=== PATIENT | male | born 2000 | race African-American/Black ===

== ENCOUNTER 2024-05-07 10:09 | Inpatient (IN) | payer OTHER ==
[2024-05-07 11:03] LABS: Specific Gravity 1.014 (1.005-1.030); Sqamous Epithelial <5 /HPF (None Seen); Urine Bacteria None Seen /HPF (<20); Urine Bilirubin NEGATIVE (Negative); Urine Blood Negative (Negative); Urine Clarity Clear (Clear); Urine Color Light-Yellow (Yellow); Urine Culture Reflex Order NOT NEEDED; Urine Glucose NEGATIVE (Negative); Urine Ketones NEGATIVE (Negative); Urine Micro Reflex YN NO BILL MICROSCOPIC; Urine Mucus Slight /HPF (None Seen); Urine Nitrite NEGATIVE (Negative); Urine Protein 1+ (Negative); Urine RBC <5 /HPF (None Seen); Urine Urobilinogen Normal (Normal); Urine WBC <5 /HPF (<5)
[2024-05-07 11:18] LABS: Absolute Eosinophils 0.1 K/uL (0-0.5); Absolute Lymphocytes (CBC) 0.9 K/uL (0.7-4.9); Absolute Monocytes 0.9 K/uL (0.1-1.3); Absolute Neutrophil 12.2 K/uL (1.8-8.0); Basophils % 0.3 % (0-1.3); Eosinophils % 0.8 % (0-4.4); Hematocrit 51.4 % (39.6-49.0); Hemoglobin 16.2 g/dL (13.6-17.9); Lymphocytes % 6.3 % (15.3-44.8); MCH 25.4 pg (27.0-35.0); MCHC 31.6 g/dL (32.0-36.0); MCV 80.4 fL (80-100); MPV 8.3 fL (7.6-11.3); Monocytes % 6.2 % (3.3-12.3); Neutrophils % 86.4 % (41.7-73.7); Platelets 308 thou/uL (152-406); RBC Red Blood Cell Count 6.39 M/uL (4.33-5.43); Red Cell Distribution Width 14.9 % (12.1-15.2)
[2024-05-07 11:19] LABS: Albumin 3.7 g/dL (3.4-5.0); Albumin/Globulin Ratio 0.8 (1.1-1.8); Anion Gap 8.1 mEq/L (5.0-15.0); Bilirubin Total 0.4 mg/dL (0.2-1.0); Globulin 4.5 g/dL (2.3-3.5); Potassium 3.1 mEq/L (3.5-5.1); Protein, Total 8.2 g/dL (6.4-8.2)
[2024-05-07] MEDS ORDERED: D10W 250 ML IV ONE (11:32)
[2024-05-07] MEDS ORDERED: POTASSIUM CL SA 10 MEQ TAB PO ONE (11:39)
[2024-05-07] MEDS ORDERED: KCL 20 MEQ/100 mL IVPB 100 ML IV ONE (11:39)
[2024-05-07 12:17] LABS: Blood Morphology Comment NOT SEEN (NOT SEEN); Platelet Estimate ADEQ; White Blood Cell Scan OK (OK)
[2024-05-07] MEDS ORDERED: NA CHLORIDE 0.9% 250 ML ONE ×2 (12:37→19:32)
--- NOTE | 2024-05-07 12:51 | EDPHYS ---
Physician Documentation [facility] Name: Lopez Leach Age: 23 yrs Sex: Male : 2000 Arrival Date: 05/07/2024 Time: 10:09 Bed 3 Private MD: ED Physician Antonino Lubin HPI: 05/07 10:16 This 23 yrs old Black Male presents to ER via Unassigned with complaints of Low Blood ec2 Sugar. 10:16 Patient arrives today for evaluation of hypoglycemia. Patient is a type I diabetic, had ec2 received Novolin this morning, subsequently found unresponsive with a blood sugar in the 30s. Glucagon given, IV started, dextrose given with improvement. Patient was initially combative however with improvement in blood sugars have since resolved. No seizure activity noted identified.. Historical: - Allergies: 10:21 No Known Allergies; ko1 - PMHx: 10:21 Diabetes mellitus; ko1 - Immunization history:: Adult Immunizations unknown. - Infectious Disease History:: Denies. - Social history:: Smoking status: Patient denies any tobacco usage or history of. ROS: 10:16 Constitutional: as per hpi ec2 Exam: 10:16 Constitutional: GEN: NAD Head: atraumatic Eyes: EOMI Ears: External ears are ec2 normal. CV: regular rate LUNGS: no respiratory distress ABD: non-distended SKIN: no evidence of rashes MSK: no evidence of trauma NEURO: moves all extremities equally Vital Signs: 10:17 BP 140 / 89; Pulse 98; Resp 18; Temp 97; Pulse Ox 98% on R/A; ko1 11:30 BP 126 / 77; Pulse 85; Resp 14; Pulse Ox 99% ; ko1 12:44 BP 113 / 68; Pulse 91; Resp 20; Pulse Ox 99% ; as6 14:00 BP 100 / 70; Pulse 69; Resp 21; Pulse Ox 100% on R/A; as6 15:37 BP 128 / 79; Pulse 76; Resp 20 S; Pulse Ox 100% on R/A; as6 17:24 Weight 89.36 kg; Height 6 ft. 0 in. ; hb 17:32 BP 121 / 81; Pulse 65; Resp 19; Pulse Ox 100% ; as6 18:11 BP 129 / 80; Pulse 65; Resp 16; Pulse Ox 100% ; as6 17:24 Body Mass Index 26.72 (89.36 kg, 182.88 cm) hb MDM: 10:15 Patient medically screened. ec2 10:16 Data reviewed: vital signs. ED course: Patient arrives today for evaluation of ec2 hyperglycemia. Examination remarkable for well-appearing nontoxic individual otherwise in no acute distress with a reassuring examination. History gathered from EMS as well as patient. Patient is awake and alert and answering questions appropriately. Will obtain lab work, repeat blood sugar. Differential diagnosis includes supratherapeutic administration of hypoglycemic agents, electrolyte disturbances, renal dysfunction.. 10:59 ED course: On recheck blood sugar within appropriate ranges.. ec2 10:59 ED course: MDM: Differential diagnosis as documented above in ED course; All lab tests ec2 ordered and reviewed as documented above; History gathered from independent historian: Yes, EMS; . 11:28 ED course: CBC shows slight leukocytosis, bmp shows hypoglycemia, pt remains awake, ec2 alert and conversation, will recheck fingerstick and resend BMP . 11:34 ED course: Repeat blood sugar on fingerstick noted to be at the mid 20s. Will give the ec2 patient dextrose containing fluids. Patient remains awake and alert and responsive appropriately. Given the patient has now received 2 dextrose containing fluid w/ episodes of recurrent hypoglycemia, I will admit the patient for hypoglycemia requiring dextrose. . 11:38 ED course: MDM: Differential diagnosis as documented above in ED course; All lab tests ec2 ordered and reviewed as documented above; Independent interpretation of tests: EKG as above; imaging as above; External records reviewed: yes; History gathered from independent historian: Yes, EMS; Discuss inpatient hospitalization: Yes; I discussed the case with: Hospitalist . 11:46 ED course: EKG independently reviewed and interpreted by me, shows normal sinus rhythm, ec2 rate of 86, no acute ST segment elevations, intervals are nonconcerning.. 11:56 ED course: Chest x-ray independently reviewed and interpreted by me, shows no acute ec2 intrathoracic process.. 05/07 10:14 Order name: CBC with Diff; Complete Time: 12:50 ec2 05/07 10:14 Order name: CMP; Complete Time: 11:27 ec2 05/07 10:14 Order name: UAM; Complete Time: 11:04 ec2 05/07 10:26 Order name: Glucose, Ancillary Testing; Complete Time: 10:59 EDMS 05/07 11:34 Order name: Troponin High Sensitivity; Complete Time: 16:18 ec2 05/07 11:34 Order name: LFT's; Complete Time: 16:18 ec2 05/07 11:44 Order name: Glucose, Ancillary Testing; Complete Time: 11:53 EDMS 05/07 12:18 Order name: CBC Smear Scan; Complete Time: 12:50 EDMS 05/07 12:55 Order name: Glucose, Ancillary Testing; Complete Time: 13:08 EDMS 05/07 13:09 Order name: Basic Metabolic Panel; Complete Time: 16:18 EDMS 05/07 13:09 Order name: Lactate w/ 2H reflex if indic.; Complete Time: 16:18 EDMS 05/07 13:09 Order name: Magnesium; Complete Time: 16:18 EDMS 05/07 13:14 Order name: C-Peptide EDMS 05/07 13:14 Order name: Insulin EDMS 05/07 15:56 Order name: Urinalysis w/ reflexes EDMS 05/07 17:19 Order name: Ghost Lactate-NO COLLECT Timer EDMS 05/07 17:34 Order name: Lactate w/ 2H reflex if indic. EDMS 05/07 17:36 Order name: Glucose, Ancillary Testing EDMS 05/07 19:34 Order name: Ghost Lactate-NO COLLECT Timer EDMS 05/07 20:03 Order name: Lactate Sepsis 2 HR Follow-up EDMS 05/07 21:49 Order name: Glucose, Ancillary Testing EDMS 05/07 11:32 Order name: CXR XRAY; Complete Time: 13:08 ec2 05/07 10:14 Order name: Accucheck; Complete Time: 10:22 ec2 05/07 10:59 Order name: PO challenge; Complete Time: 11:14 ec2 05/07 11:29 Order name: Glucose Level; Complete Time: 11:33 ec2 05/07 11:34 Order name: EKG - Nurse/Tech; Complete Time: 11:42 ec2 Administered Medications: 11:25 Drug: D10 in Water IVP 250 ml IVP once Route: IVP; Site: right antecubital; as6 18:36 Follow up: Response: No adverse reaction; Blood sugar is elevated as6 11:42 Drug: Potassium Chloride PO 40 mEq PO once Route: PO; ko1 17:33 Follow up: Response: No adverse reaction as6 12:43 Drug: Potassium Chloride IV 20 mEq IV at calculated rate once; administer over 1-2 as6 hours Route: IV; Rate: calculated rate; Site: right antecubital; 17:32 Follow up: Response: No adverse reaction; IV Status: Completed infusion; IV Intake: as6 100ml 15:37 Drug: NS 0.9% IV 1000 ml IV at 1 bolus Per protocol; 1000 mL bolus Route: IV; Rate: 1 as6 bolus; Site: right antecubital; 17:32 Follow up: Response: No adverse reaction; IV Status: Completed infusion; IV Intake: as6 1000ml Point of Care Testing: Blood Glucose: 11:34 Blood Glucose: 27 mg/dL; as6 12:44 Blood Glucose: 138 mg/dL; as6 Ranges: Critical Glucose Levels:Adult <50 mg/dl or >400 mg/dl <40 mg/dl or >180 mg/dl Disposition Summary: 05/07/24 12:50 Hospitalization Ordered Notes: Hospitalization Status: Inpatient Admission ec2 Provider: Funmilayo Wright ec2 Condition: Stable ec2 Problem: an ongoing problem ec2 Symptoms: have improved ec2 Bed/Room Type: Standard ec2 [facility] Room Assignment: [facility](05/07/24 20:05) Diagnosis - Type 1 diabetes mellitus with hypoglycemia ec2 Discharge Instructions: - Discharge Summary Sheet ec2 - Hypoglycemia, [id number] ec2 Forms: - Medication Reconciliation Form ec2 - SBAR form ec2 - Leadership Thank You Letter ec2 Critical care time excluding procedures: 12:50 Critical care time: Bedside Care: 30 minutes, Consultation: 5 minutes. Total time: 35 ec2 minutes Signatures: Dispatcher [employer] Teresa Black RN VALE hb Jacek Robles RN RN as6 Sarah Devi RN RN ko1 Antonino Lubin MD MD ec2 Corrections: (The following items were deleted from the chart) 13:15 11:29 BASIC METABOLIC PANEL+C.LAB.BRZ ordered. EDMS EDMS 20:05 12:50 Intensive Care Unit ec2 hb 20:05 12:50 ec2 hb
--- NOTE | 2024-05-07 12:51 | ER ---
Nurse's Notes [facility] Name: Lopez Leach Age: 23 yrs Sex: Male : 2000 Arrival Date: 05/07/2024 Time: 10:09 Bed 3 Private MD: Diagnosis: Type 1 diabetes mellitus with hypoglycemia Presentation: 05/07 10:17 Chief complaint: EMS states: patient received his morning insulin at the [facility] and ko1 then was found unresponsive in his cell. Blood sugar was in the 30's, was given ORAL glucose and EMS arrived and started D10. Coronavirus screen: At this time, the client does not indicate any symptoms associated with coronavirus-19. Ebola Screen: No symptoms or risks identified at this time. Initial Sepsis Screen: Does the patient meet any 2 criteria? No. Patient's initial sepsis screen is negative. Does the patient have a suspected source of infection? No. Patient's initial sepsis screen is negative. Risk Assessment: Do you want to hurt yourself or someone else? Patient reports no desire to harm self or others. Onset of symptoms was May 07, 2024. Care prior to arrival: Medication(s) given: D10 IV initiated. 20 GA, in the right antecubital area, Glucose check: 334 Oxygen administered. via a non-rebreather mask. Activity prior to arrival: combative, loss of consciousness. 10:17 Method Of Arrival: EMS: [facility] ko1 10:17 Acuity: PATRICIA 3 ko1 Triage Assessment: 10:21 General: Appears in no apparent distress. Behavior is calm, cooperative, appropriate ko1 for age. Pain: Denies pain. Historical: - Allergies: 10:21 No Known Allergies; ko1 - PMHx: 10:21 Diabetes mellitus; ko1 - Immunization history:: Adult Immunizations unknown. - Infectious Disease History:: Denies. - Social history:: Smoking status: Patient denies any tobacco usage or history of. Screenin:30 [facility] ED Fall Risk Assessment (Adult) History of falling in the last 3 months, ko1 including since admission No falls in past 3 months (0 pts) Confusion or Disorientation No (0 pts) Intoxicated or Sedated No (0 pts) Impaired Gait No (0 pts) Mobility Assist Device Used No (0 pt) Altered Elimination No (0 pt) Score/Fall Risk Level 0 - 2 = Low Risk Oriented to surroundings, Maintained a safe environment, Educated pt \T\ family on fall prevention, incl call for assistance when getting out of bed, Assessed \T\ reinforced patient's understanding of fall precautions, Provided non-skid footwear, Hourly rounding (assess needs \T\ fall precautionary measures) done, Used ambulatory aids as needed (educated on \T\ assisted with), Used gait belt as appropriate. Abuse screen: Denies threats or abuse. Denies injuries from another. Nutritional screening: No deficits noted. Tuberculosis screening: No symptoms or risk factors identified. Assessment: 10:30 General: Appears in no apparent distress. Behavior is calm, cooperative, appropriate ko1 for age. Pain: Denies pain. Neuro: No deficits noted. Cardiovascular: No deficits noted. Respiratory: No deficits noted. GI: No deficits noted. : No deficits noted. EENT: No deficits noted. Derm: No deficits noted. Musculoskeletal: No deficits noted. 12:44 Reassessment: Patient appears in no apparent distress at this time. as6 15:38 Reassessment: Patient appears in no apparent distress at this time. no complaints or as6 concerns at this time. 18:11 Reassessment: Patient appears in no apparent distress at this time. Patient and/or as6 family updated on plan of care and expected duration. Pain level reassessed. Patient is alert, oriented x 3, equal unlabored respirations, skin warm/dry/pink. Vital Signs: 10:17 BP 140 / 89; Pulse 98; Resp 18; Temp 97; Pulse Ox 98% on R/A; ko1 11:30 BP 126 / 77; Pulse 85; Resp 14; Pulse Ox 99% ; ko1 12:44 BP 113 / 68; Pulse 91; Resp 20; Pulse Ox 99% ; as6 14:00 BP 100 / 70; Pulse 69; Resp 21; Pulse Ox 100% on R/A; as6 15:37 BP 128 / 79; Pulse 76; Resp 20 S; Pulse Ox 100% on R/A; as6 17:24 Weight 89.36 kg; Height 6 ft. 0 in. ; hb 17:32 BP 121 / 81; Pulse 65; Resp 19; Pulse Ox 100% ; as6 18:11 BP 129 / 80; Pulse 65; Resp 16; Pulse Ox 100% ; as6 17:24 Body Mass Index 26.72 (89.36 kg, 182.88 cm) ED Course: 10:13 Patient arrived in ED. as6 10:14 Antonino Lubin MD is Attending Physician. ec2 10:17 Sarah Devi, RN is Primary Nurse. ko1 10:21 Triage completed. ko1 10:21 Arm band placed on right wrist. Patient placed in an exam room, on a stretcher, on ko1 pulse oximetry, Patient notified of wait time. 10:30 Patient has correct armband on for positive identification. Bed in low position. Call ko1 light in reach. Side rails up X2. Security at bedside. Provided Education on: labs, call light. Pulse ox on. NIBP on. Door closed. Noise minimized. Warm blanket given. Pillow given. PO fluids given. Assisted with urinal. 10:30 No provider procedures requiring assistance completed. Maintain EMS IV. Dressing ko1 intact. Good blood return noted. Site clean \T\ dry. Gauge \T\ site: 20g right AC. 10:54 UAM Sent. as6 10:54 CMP Sent. as6 10:54 CBC with Diff Sent. as6 11:14 PO fluids given. as6 12:10 CXR XRAY In Process Unspecified. EDMS 12:45 Diet tray given. as6 12:50 Funmilayo Wright MD is Hospitalizing Provider. ec2 18:15 Primary Nurse role handed off by Sarah Devi, RN as6 18:38 Patient admitted, IV remains in place. as6 Administered Medications: 11:25 Drug: D10 in Water IVP 250 ml IVP once Route: IVP; Site: right antecubital; as6 18:36 Follow up: Response: No adverse reaction; Blood sugar is elevated as6 11:42 Drug: Potassium Chloride PO 40 mEq PO once Route: PO; ko1 17:33 Follow up: Response: No adverse reaction as6 12:43 Drug: Potassium Chloride IV 20 mEq IV at calculated rate once; administer over 1-2 as6 hours Route: IV; Rate: calculated rate; Site: right antecubital; 17:32 Follow up: Response: No adverse reaction; IV Status: Completed infusion; IV Intake: as6 100ml 15:37 Drug: NS 0.9% IV 1000 ml IV at 1 bolus Per protocol; 1000 mL bolus Route: IV; Rate: 1 as6 bolus; Site: right antecubital; 17:32 Follow up: Response: No adverse reaction; IV Status: Completed infusion; IV Intake: as6 1000ml Medication: 10:30 VIS not applicable for this client. ko1 Point of Care Testing: Blood Glucose: 11:34 Blood Glucose: 27 mg/dL; as6 12:44 Blood Glucose: 138 mg/dL; as6 Ranges: Intake: 17:32 IV: 1000ml; Total: 1000ml. as6 17:32 IV: 100ml; Total: 1100ml. as6 Outcome: 12:50 Decision to Hospitalize by Provider. ec2 18:38 Condition: stable as6 18:38 Instructed on the need for admit, 21:53 Admitted to Med/surg accompanied by tech, via wheelchair, with chart, tm6 21:54 Patient left the ED. tm6 Signatures: Dispatcher [employer] Teresa Black RN RN Jacek Robles RN RN as6 Sarah Devi RN RN ko1 Antonino Lubin MD MD ec2 Deborah Paz RN RN tm6
--- NOTE | 2024-05-07 13:02 | RAD REPORT ---
EXAM DESCRIPTION: Nai Single View05/07/2024 12:08 pm CLINICAL HISTORY: cough COMPARISON: none FINDINGS: The lungs appear clear of acute infiltrate. The heart is normal size IMPRESSION: No acute abnormalities displayed
--- NOTE | 2024-05-07 13:14 | P.HP ---
Certification for Inpatient Patient admitted to: Inpatient Practitioner: I am a practitioner with admitting privileges, knowledge of patient current condition, hospital course, and medical plan of care. Services: Services provided to patient in accordance with Admission requirements found in Title 42 Section 412.3 of the Code of Federal Regulations Patient History Date of Service: 05/08/24 Reason for admission: Hypoglycemia History of Present Illness: 23-year-old -[place] male with a past medical history of insulin- dependent diabetes, presented to the emergency room for hypoglycemia. Patient was treated with IV dextrose, had recurrent hypoglycemia. No reported fever, no reported nausea vomiting abdominal pain, diarrhea. Plan to admit for hypoglycemia, sepsis without shock, and diabetes mellitus type 1.additional labs patient had elevated lactic 3.2, repeat 2.2 elevated blood glucose, treated with sliding scale insulin, resume home insulin, patient is awake, tolerating diet, plan to admit for hypoglycemia, for diabetes type 1 with hypoglycemia, sepsis unknown source without hypotension. Allergies peanut Allergy (Verified 05/08/24 09:10) Shortness of breath Home Medications: Insulin NPH Human Isophane [Novolin N] 15 unit SQ BEDTIME 05/08/24 Insulin NPH Human Isophane [Novolin N] 30 unit SQ DAILY 05/08/24 Insulin Regular, Human [Novolin R] 5 unit SQ BIDWM 05/08/24 - Past Medical/Surgical History -: Insulin-dependent diabetes mellitus Past Surgical History: Unable to obtain Psychosocial/ Personal History: Presents as a prisoner for hypoglycemia - Social History Smoking Status: Unknown if ever smoked Alcohol use: No CD- Drugs: Yes Review of Systems Per HPI Physical Examination - Physical Exam General: Alert, In no apparent distress HEENT: Atraumatic, Normocephalic Neck: Supple, JVD not distended Cardiovascular: No edema, Normal pulses Capillary refill: <2 Seconds Gastrointestinal: Normal bowel sounds, Soft and benign Musculoskeletal: No clubbing, No swelling Integumentary: No breakdown, No significant lesion Neurological: Normal speech, Normal strength at 5/5 x4 extr - Studies Laboratory Data (last 24 hrs) 05/07/24 05/07/24 10:50 10:50 WBC 14.10 H Hgb 16.2 Hct 51.4 H Plt Count 308 Sodium 141 Potassium 3.1 L BUN 9 Creatinine 1.29 Glucose 25 L* Total Bilirubin 0.4 AST 17 ALT 24 Alkaline Phosphatase 89 Assessment and Plan - Plan Assessment plan Sepsis without shock, unknown source Leukocytosis , Elevated lactic, Blood cultures negative, UA negative, Treated with IV fluids, IV antibiotics, Hypoglycemia As needed glucose Accu-Chek ACHS, Diabetes type 1 unknown control Resume home NovoLog, Disposition return to sending facility Discharge Plan: Other (Present) - Advance Directives Does patient have a Living Will: No Does patient have a Durable POA for Healthcare: No - Code Status/Comfort Care Code Status: Full Code Critical Care: No Time Spent Managing Pts Care (In Minutes): 55
[2024-05-07 15:08] LABS: Anion Gap 8.3 mEq/L (5.0-15.0); Magnesium 2.4 mg/dL (1.6-2.4); Potassium 4.3 mEq/L (3.5-5.1)
[2024-05-07 15:29] LABS: ALT/SGPT 23 U/L (16-61); AST/SGOT 21 U/L (15-37); Albumin 3.6 g/dL (3.4-5.0); Albumin/Globulin Ratio 0.8 (1.1-1.8); Alkaline Phosphatase 92 U/L (45-117); Bilirubin Total 0.5 mg/dL (0.2-1.0); Globulin 4.6 g/dL (2.3-3.5); Protein, Total 8.2 g/dL (6.4-8.2); Troponin High Sensitivity 19.1 pg/mL (<58.9)
[2024-05-07 15:30] LABS: Bilirubin Direct < 0.2 mg/dL (0-0.2); Bilirubin Indirect, Calculated 0.3 mg/dL (0.2-0.8)
[2024-05-07] MEDS ORDERED: NA CHLORIDE 0.9% 1,000 ML ONE ×2 (15:30→19:32)
[2024-05-07] MEDS: NA CHLORIDE 0.9% 1,000 ML IV SCH (16:00)
[2024-05-07] MEDS: VANCOMYCIN 1 GM in NA CHLORIDE 0.9% 250 ML IVPB SCH (16:00)
[2024-05-07] MEDS ORDERED: GLUCAGON 1 MG/VIAL IV PRN (16:04)
[2024-05-07] MEDS ORDERED: ACETAMINOPHEN 500 MG TAB PO PRN (16:07)
[2024-05-07] MEDS ORDERED: ALPRAZOLAM 0.25 MG TABLET PO PRN (16:07)
[2024-05-07] MEDS ORDERED: ONDANSETRON 4 MG/2 ML VIAL IV PRN (16:07)
[2024-05-07] MEDS: VANCOMYCIN 750 MG in NA CHLORIDE 0.9% 150 ML IVPB ONE (18:00)
[2024-05-07] MEDS ORDERED: VANCOMYCIN 1.5 GM in NA CHLORIDE 0.9% 500 ML IVPB SCH (18:00)
[2024-05-07] MEDS: VANCOMYCIN 1.5 GM in NA CHLORIDE 0.9% 500 ML IVPB SCH (18:00)
[2024-05-07 18:38] VITALS: BMI 26.7
[2024-05-07] MEDS ORDERED: VANCOMYCIN 500 MG/VIAL ONE (19:31)
[2024-05-07] MEDS ORDERED: VANCOMYCIN 1 GM/VIAL ONE ×2 (19:31→19:36)
[2024-05-07] MEDS ORDERED: NA CHLORIDE 0.9% 500 ML ONE (19:32)
[2024-05-07] MEDS: INSULIN REGULAR (HUMAN) 100 UNIT/ML SQ SCH (19:39)
[2024-05-07 21:36] VITALS: O2SAT 96
[2024-05-07] MEDS ORDERED: INSULIN REGULAR (HUMAN) 100 UNIT/ML ONE (21:43)
--- NOTE | 2024-05-08 07:13 | P.DS ---
Admission Date: 05/07/24 Discharge Date: 05/08/24 Disposition: DISCHARGE TO RETIREMENT/RETIREMENT Discharge Condition: GOOD Brief History of Present Illness: 23-year-old -[place] male with a past medical history of insulin- dependent diabetes, presented to the emergency room for hypoglycemia. Patient was treated with IV dextrose, had recurrent hypoglycemia. No reported fever, no reported nausea vomiting abdominal pain, diarrhea. Plan to admit for hypogl ycemia, sepsis without shock, and diabetes mellitus type 1. - Physical Exam General: Alert, In no apparent distress HEENT: Atraumatic, Normocephalic Neck: Supple, JVD not distended Cardiovascular: No edema, Normal pulses Capillary refill: <2 Seconds Gastrointestinal: Normal bowel sounds, Soft and benign Musculoskeletal: No clubbing, No swelling Integumentary: No breakdown, No significant lesion Neurological: Normal speech, Normal strength at 5/5 x4 extr Hospital Course: 23-year-old -[place] male with a past medical history of insulin- dependent diabetes, presented to the emergency room for hypoglycemia. Patient was treated with IV dextrose, had recurrent hypoglycemia. Noted to have leukocytosis, elevated lactic, was treated for sepsis, WBCs improved with IV fluids, IV antibiotics, UA negative, patient is awake, tolerating diet, can discharge to sending facility, present. Follow-up with PCP, after discharge Assessment Hypoglycemia likely secondary to sepsis-without shock, treated with IV antibiotics plan to discharge home on p.o. antibiotics, unknown source of infection Hypoglycemia-discharged with glucose, ACHS blood sugars, Diabetes type 1 resume home meds after discharge, diabetic diet Continue home medicines as previously prescribed GOAL: Clear understanding of disease process INSTRUCTIONS: Physician Discharge Instructions: -Follow-up with PCP in 1 to 2 weeks -Please call Dr. Wright at [phone] if any questions regarding hospital stay -Please call nursing station at [phone] if any nursing or medication questions -Return to the emergency room if symptoms worsen Diet: ADA, low sodium Activity: Fall precautions Vital Signs/Physical Exam: Temp Pulse Resp BP Pulse Ox 96.0 F L 78 16 128/78 96 05/07/24 20:00 05/07/24 20:00 05/07/24 20:00 05/07/24 20:00 05/07/24 20:00 Laboratory Data at Discharge: WBC 14.10 thou/uL (4.3-10.9) H 05/07/24 10:50 Hgb 16.2 g/dL (13.6-17.9) 05/07/24 10:50 Hct 51.4 % (39.6-49.0) H 05/07/24 10:50 Plt Count 308 thou/uL (152-406) 05/07/24 10:50 Sodium 135 mEq/L (136-145) L D 05/07/24 14:43 Potassium 4.3 mEq/L (3.5-5.1) D 05/07/24 14:43 BUN 10 mg/dL (7-18) 05/07/24 14:43 Creatinine 1.26 mg/dL (0.70-1.30) 05/07/24 14:43 Glucose 173 mg/dL (74-106) H 05/07/24 14:43 Magnesium 2.4 mg/dL (1.6-2.4) 05/07/24 14:43 Total Bilirubin 0.5 mg/dL (0.2-1.0) 05/07/24 14:43 AST 21 U/L (15-37) 05/07/24 14:43 ALT 23 U/L (16-61) 05/07/24 14:43 Alkaline Phosphatase 92 U/L (45-117) 05/07/24 14:43 Home Medications: Insulin NPH Human Isophane [Novolin N] 15 unit SQ BEDTIME 05/08/24 Insulin NPH Human Isophane [Novolin N] 30 unit SQ DAILY 05/08/24 Insulin Regular, Human [Novolin R] 5 unit SQ BIDWM 05/08/24 Diet: ADA Activity: Fall precautions Followup: NONE,NONE [Primary Care Provider] - Time spent managing pt's care (in minutes): 55
[2024-05-08] MEDS: CEFEPIME 1 GM in NA CHLORIDE 0.9% 100 ML IV SCH (07:24)
[2024-05-08 08:51] LABS: Absolute Basophils 0.1 K/uL (0-0.5); Absolute Eosinophils 0.3 K/uL (0-0.5); Absolute Lymphocytes (CBC) 1.4 K/uL (0.7-4.9); Absolute Neutrophil 7.6 K/uL (1.8-8.0); Basophils % 0.5 % (0-1.3); Eosinophils % 2.9 % (0-4.4); Hematocrit 46.6 % (39.6-49.0); Hemoglobin 15.2 g/dL (13.6-17.9); Lymphocytes % 13.9 % (15.3-44.8); MCHC 32.5 g/dL (32.0-36.0); MCV 79.8 fL (80-100); MPV 8.4 fL (7.6-11.3); Monocytes % 9.4 % (3.3-12.3); Neutrophils % 73.3 % (41.7-73.7); Platelets 295 thou/uL (152-406); RBC Red Blood Cell Count 5.83 M/uL (4.33-5.43); Red Cell Distribution Width 14.9 % (12.1-15.2)
[2024-05-08 08:54] LABS: Anion Gap 7.4 mEq/L (5.0-15.0); Magnesium 1.9 mg/dL (1.6-2.4); Potassium 4.4 mEq/L (3.5-5.1)
[2024-05-08] MEDS ORDERED: ENOXAPARIN 40 MG/0.4 ML SQ SCH (09:00)
[2024-05-08] MEDS: INSULIN 70/30 100 UNITS/ML SQ ONE (10:22)
[2024-05-08] MEDS: INSULIN GLARGINE 100 UNIT/ML SQ STA (12:34)
[2024-05-08 13:03] VITALS: BP 137/66; TEMP 97.6
--- NOTE | 2024-05-09 14:57 | EKG ---
Test Date: 2024-05-07 Test Time: 11:41:11 Sprinkler Driver: MEASUREMENT RESULTS: Intervals: Rate: 86 CT: 182 QRSD: 86 QT: 378 QTc: 452 [place]: P: 57 CT: 182 QRS: 61 T: 38 INTERPRETIVE STATEMENTS: Normal sinus rhythm ST elevation, consider early repolarization, pericarditis, or injury Abnormal ECG No previous ECG available for comparison Electronically Signed On 05-09-24 14:52:15 CDT by Sergio Rick
[2024-05-11 04:47] LABS: C-Peptide <0.10 ng/mL (0.80-3.85); Insulin 14.2 uIU/mL (<=18.4)
== END 2024-05-08 13:08 | DRG 871 ==
LOC: ER 10:09 → ERHOLD 15:52 → 4TH 20:42
PROVIDERS: ADMIT Hospitalist; ATTEND Hospitalist
DX: A41.9 Sepsis, unspecified organism (principal); G93.41 Metabolic encephalopathy; E87.20 Acidosis, unspecified; R65.20 Severe sepsis without septic shock; E10.649 Type 1 diabetes mellitus with hypoglycemia without coma; Z79.4 Long term (current) use of insulin; Z91.010 Allergy to peanuts
CPT/HCPCS: 36415; 71045; 80048; 80053; 80076; 81001; 82947; 83036; 83525; 83605; 83735; 84484; 84681; 85025; 87040; 93005; 96365; 96366; 99285; J0692; J1815; J3480; J7030; J7040; J7050

== ENCOUNTER 2024-05-24 20:07 | Observation (INO) | payer OTHER ==
[2024-05-24 20:26] LABS: Absolute Basophils 0.1 K/uL (0-0.5); Absolute Eosinophils 0.3 K/uL (0-0.5); Absolute Lymphocytes (CBC) 1.3 K/uL (0.7-4.9); Basophils % 0.5 % (0-1.3); Eosinophils % 2.7 % (0-4.4); Hematocrit 47.9 % (39.6-49.0); Hemoglobin 15.5 g/dL (13.6-17.9); Lymphocytes % 10.9 % (15.3-44.8); MCH 25.7 pg (27.0-35.0); MCHC 32.3 g/dL (32.0-36.0); MCV 79.5 fL (80-100); MPV 7.8 fL (7.6-11.3); Monocytes % 8.4 % (3.3-12.3); Neutrophils % 77.5 % (41.7-73.7); Nucleated Red Blood Cells % 0.1 % (0-0); Platelets 296 thou/uL (152-406); RBC Red Blood Cell Count 6.02 M/uL (4.33-5.43); Red Cell Distribution Width 15.2 % (12.1-15.2)
[2024-05-24] MEDS ORDERED: ONDANSETRON 4 MG/2 ML VIAL ONE (20:28)
[2024-05-24] MEDS ORDERED: D5 0.9 NS 0 ML IV ONE (20:28)
[2024-05-24] MEDS ORDERED: KETOROLAC 30 MG/ML INJ ONE (20:30)
--- NOTE | 2024-05-24 20:48 | RAD REPORT ---
EXAM DESCRIPTION: Nai Single View05/24/2024 8:35 pm CLINICAL HISTORY: Chest pain COMPARISON: April 2024 FINDINGS: The lungs appear clear of acute infiltrate. The heart is normal size IMPRESSION: No acute abnormalities displayed
--- NOTE | 2024-05-24 20:49 | RAD REPORT ---
EXAM DESCRIPTION: RAD - Wrist Left 3 View - 05/24/2024 8:35 pm CLINICAL HISTORY: Left wrist pain status post injury FINDINGS: No fracture or dislocation is seen. If the patient continues to have symptoms to suggest an occult fracture then a followup plain film se leidy in 7 days would be recommended
[2024-05-24 21:32] LABS: ALT/SGPT 24 U/L (16-61); AST/SGOT 20 U/L (15-37); Albumin 3.8 g/dL (3.4-5.0); Alkaline Phosphatase 79 U/L (45-117); Anion Gap 11.2 mEq/L (5.0-15.0); BUN Blood Urea Nitrogen 18 mg/dL (7-18); Bicarbonate 25 mEq/L (21-32); Bilirubin Total 0.3 mg/dL (0.2-1.0); Glomerular Filtration Rate 78 ml/min (=/>90); Glucose Level 241 mg/dL (74-106); Magnesium 2.2 mg/dL (1.6-2.4); NT PRO-BNP 24 pg/mL (<125); Potassium 3.2 mEq/L (3.5-5.1); Protein, Total 7.8 g/dL (6.4-8.2); Sodium Level 137 mEq/L (136-145); Troponin High Sensitivity 3.8 pg/mL (<58.9)
[2024-05-24 21:34] LABS: Bilirubin Direct < 0.2 mg/dL (0-0.2); Bilirubin Indirect, Calculated 0.1 mg/dL (0.2-0.8)
--- NOTE | 2024-05-24 22:55 | EDPHYS ---
Physician Documentation [facility] Name: Lopez Leach Age: 23 yrs Sex: Male : 2000 Arrival Date: 05/24/2024 Time: 20:07 Bed 3 Private MD: ED Physician Antoni Sheehan HPI: 05/24 20:10 This 23 yrs old Black Male presents to ER via Unassigned with complaints of Low Blood sp4 Sugar. 21:46 23-year-old male presents from [facility] with low blood sugar. Patient reportedly sp4 had syncopal episode and his blood sugar was too low to measure by EMS on arrival. EMS have provided D50 IV and on arrival patient's blood sugar was measured at 166. patient was admitted here on 05/07/2024 with hypoglycemia. Patient has insulin-dependent diabetes. And his medications include Novolin and 15 units sub Q bedtime, Novolin and 30 units sub Q daily, and Novolin R 5 units sub Q twice daily. Patient did state that he consumed Novolin R 15 units at 2 PM. . Historical: - Allergies: 20:22 No Known Allergies; bm8 - Home Meds: 20:22 insulin [Active]; bm8 - PMHx: 20:22 diabetes mellitus; bm8 - PSHx: 20:22 None; bm8 - Immunization history:: Adult Immunizations up to date. - Infectious Disease History:: Denies. - Social history:: Smoking status: Patient denies any tobacco usage or history of. ROS: 21:50 Constitutional: Negative for fever, chills, and weight loss, positive hypoglycemia and sp4 syncopal episode. 21:50 All other systems are negative, Exam: 21:50 Constitutional: This is a well developed, well nourished patient who is awake, alert, sp4 patient has shivers on arrival he is alert and oriented. Head/Face: Normocephalic, atraumatic. Eyes: Pupils equal round and reactive to light, extra-ocular motions intact. Lids and lashes normal. Conjunctiva and sclera are not injected. Cornea within normal limits. Periorbital areas with no swelling, redness, or edema. ENT: Nares patent. No nasal discharge, no septal abnormalities noted. Tympanic membranes are normal and external auditory canals are clear. Oropharynx with no redness, swelling, or masses, exudates, or evidence of obstruction, uvula midline. Mucous membranes moist. Neck: Trachea midline, no thyromegaly or masses palpated, and no cervical lymphadenopathy. Supple, full range of motion without nuchal rigidity, or vertebral point tenderness. Chest/axilla: Normal chest wall appearance and motion. Nontender with no deformity. No lesions are appreciated. Cardiovascular: Regular rate and rhythm with a normal S1 and S2. No gallops, murmurs, or rubs. Normal PMI, no JVD. No pulse deficits. Respiratory: Lungs have equal breath sounds bilaterally, clear to auscultation and percussion. No rales, rhonchi or wheezes noted. No increased work of breathing, no retractions or nasal flaring. Abdomen/GI: Soft, with normal bowel sounds. No distension or tympany. No guarding or rebound. No evidence of tenderness throughout. Back: No spinal tenderness. No costovertebral tenderness. Skin: Warm, dry with normal turgor. Normal color with no rashes, no lesions, and no evidence of cellulitis. MS/ Extremity: Pulses equal, no cyanosis. Neurovascular intact. Full, normal range of motion. Positive left wrist pain swelling and indentation from the handcuffs. Neuro: Awake and alert, GCS 15, oriented to person, place, time, and situation. Cranial nerves II-XII grossly intact. Motor strength 5/5 in all extremities. Sensory grossly intact. Psych: Awake, alert, with orientation to person, place and time. Behavior, mood, and affect are within normal limits 21:50 ECG was reviewed by the Attending Physician. EKG at 2012 normal sinus rhythm with sinus arrhythmia at a 81 bpm Vital Signs: 20:19 BP 141 / 122; Pulse 84; Resp 18; Temp 97.4; Pulse Ox 99% on R/A; Weight 92.99 kg; bm8 Height 5 ft. 11 in. ; Pain 8/10; 21:34 BP 139 / 94; Pulse 72; Resp 19; Temp 97.4; Pulse Ox 99% on R/A; Pain 3/10; bm8 22:23 BP 120 / 84; Pulse 70; Resp 19; Temp 97.4; Pulse Ox 98% on R/A; Pain 3/10; bm8 23:30 BP 111 / 72; Pulse 68; Resp 17 S; Pulse Ox 98% on R/A; jw7 20:19 Body Mass Index 28.59 (92.99 kg, 180.34 cm) bm8 20:19 Pain Scale: Adult bm8 21:34 Pain Scale: Adult bm8 22:23 Pain Scale: Adult bm8 Mendez Coma Score: 20:25 Eye Response: spontaneous(4). Motor Response: obeys commands(6). Verbal Response: bm8 oriented(5). Total: 15. 21:34 Eye Response: spontaneous(4). Motor Response: obeys commands(6). Verbal Response: bm8 oriented(5). Total: 15. 21:50 Eye Response: spontaneous(4). Motor Response: obeys commands(6). Verbal Response: sp4 oriented(5). Total: 15. 22:23 Eye Response: spontaneous(4). Motor Response: obeys commands(6). Verbal Response: bm8 oriented(5). Total: 15. MDM: 20:12 Patient medically screened. sp4 21:42 ED course: EXAM DESCRIPTION: RAD - Wrist Left 3 View - 05/24/2024 8:35 pm CLINICAL sp4 HISTORY: Left wrist pain status post injury FINDINGS: No fracture or dislocation is seen. If the patient continues to have symptoms to suggest an occult fracture then a followup plain film series in 7 days would be recommended. 21:43 ED course: EXAM DESCRIPTION: Nai Single View05/24/2024 8:35 pm CLINICAL HISTORY: sp4 Chest pain COMPARISON: April 2024 FINDINGS: The lungs appear clear of acute infiltrate. The heart is normal size IMPRESSION: No acute abnormalities displayed. 22:54 Differential diagnosis: hyperglycemia, hyperthyroidism, hypothyroidism, myxedema coma, sp4 new onset diabetes, thyroid storm. Data reviewed: vital signs, nurses notes, EMS record, old medical records, EKG, radiologic studies, plain films. Consideration of Admission/Observation Patient was admitted/placed on observation. Escalation of care including admission/observation considered. Management of patient was discussed with the following: Hospitalist: Nydia BORJAS . ED course: Patient's sugar dropped to 106. We suspect significant insulin and intake. Patient warrants admission for blood sugar monitoring on the floor.. . 05/24 20:10 Order name: Basic Metabolic Panel; Complete Time: 21:41 sp4 05/24 20:10 Order name: CBC with Diff; Complete Time: 21:41 4 05/24 20:10 Order name: LFT's; Complete Time: 21:41 [facility] 05/24 20:10 Order name: Magnesium; Complete Time: 21:41 [facility] 05/24 20:10 Order name: NT PRO-BNP; Complete Time: 21:41 [facility] 05/24 20:10 Order name: PT-INR; Complete Time: 20:30 [facility] 05/24 20:10 Order name: Troponin HS; Complete Time: 21:41 4 05/24 20:11 Order name: Urine Drug Screen [facility] 05/24 20:11 Order name: Urinalysis W/Microscopic [facility] 05/24 20:11 Order name: Alcohol Level; Complete Time: 21:41 [facility] 05/24 20:24 Order name: Glucose, Ancillary Testing; Complete Time: 20:30 EDMS 05/24 21:44 Order name: Glucose, Ancillary Testing; Complete Time: 21:46 EDMS 05/24 22:56 Order name: Glucose, Ancillary Testing EDMS 05/24 23:07 Order name: CBC with Automated Diff EDMS 05/24 23:07 Order name: CBC with Automated Diff EDMS 05/24 23:07 Order name: Comprehensive Metabolic Panel EDMS 05/24 23:07 Order name: Comprehensive Metabolic Panel EDMS 05/24 20:10 Order name: XRAY Chest (1 view); Complete Time: 21:41 [facility] 05/24 20:24 Order name: Wrist Left (3 View) XRAY; Complete Time: 21:41 [facility] 05/24 20:10 Order name: Cardiac monitoring; Complete Time: 20:13 [facility] 05/24 20:10 Order name: EKG - Nurse/Tech; Complete Time: 20:12 [facility] 05/24 20:10 Order name: IV Saline Lock; Complete Time: 20:13 4 05/24 20:10 Order name: Labs collected and sent; Complete Time: 20:28 [facility] 05/24 20:10 Order name: O2 Per Protocol; Complete Time: 20:12 [facility] 05/24 20:10 Order name: O2 Sat Monitoring; Complete Time: 20:12 [facility] 05/24 20:30 Order name: Misc. Order: Keep restraints off until Xray report is ready; Complete Time: sp4 20:33 05/24 22:21 Order name: Accucheck Blood Glucose; Complete Time: 22:56 sp4 EC:50 Rate is 81 beats/min. Rhythm is regular, Sinus arrythmia. QRS Cardinal is Normal. ME sp4 interval is normal. QRS interval is normal. QT interval is normal. No Q waves. T waves are Normal. No ST changes noted. Clinical impression: No evidence of ischemia. Interpreted by me. Reviewed by me. Administered Medications: 20:27 Drug: Ondansetron IVP 4 mg IVP once; over 2 minutes Route: IVP; Site: right wrist; bm8 21:29 Follow up: Response: No adverse reaction bm8 20:33 Drug: Ketorolac IVP 30 mg IVP once Route: IVP; Site: right antecubital; bm8 21:29 Follow up: Response: No adverse reaction bm8 05/25 00:00 Not Given (Physician Discretion): [id number] ml IV at 125 ml/hr continuous bm8 Point of Care Testing: Blood Glucose: 05/24 20:24 Blood Glucose: 206 mg/dL; bm8 21:45 Blood Glucose: 173 mg/dL; bm8 22:30 Blood Glucose: 106 mg/dL; jw7 Ranges: Critical Glucose Levels:Adult <50 mg/dl or >400 mg/dl <40 mg/dl or >180 mg/dl Disposition Summary: 05/24/24 22:54 Hospitalization Ordered Notes: Hospitalization Status: Observation sp4 Provider: Nydia Angeles sp4 [facility] sp4 Condition: Stable sp4 Problem: new sp4 Symptoms: have improved sp4 Bed/Room Type: Standard sp4 Room Assignment: 218(05/24/24 23:10) [facility] Diagnosis - Hypoglycemia, unspecified sp4 - Acute hypoglycemic episode, hypoglycemia associated with insulin. sp4 Forms: - Medication Reconciliation Form sp4 - SBAR form sp4 - Leadership Thank You Letter sp4 Signatures: Dispatcher [employer] Antoni Constantino MD MD sp4 Narda Gonzales [facility] Roque Galindo RN RN bm8 Corrections: (The following items were deleted from the chart) 20:11 20:11 BASIC METABOLIC PANEL+C.LAB.BRZ ordered. EDMS EDMS 20:11 20:11 CBC+H.LAB.BRZ ordered. EDMS EDMS 20:11 20:11 HEPATIC FUNCTION+C.LAB.BRZ ordered. EDMS EDMS 20:11 20:11 MAGNESIUM+C.LAB.BRZ ordered. EDMS EDMS 20:11 20:11 PROBNP+C.LAB.BRZ ordered. EDMS EDMS 20:11 20:11 PROTIME (+INR)+COAG.LAB.BRZ ordered. EDMS EDMS 20:11 20:11 Troponin High Sensitivity+C.LAB.BRZ ordered. EDMS EDMS 20:11 20:11 Chest Single View+RAD.RAD.BRZ ordered. EDMS EDMS 20:11 20:11 URINE DRUG SCREEN+UC.LAB.BRZ ordered. EDMS EDMS 20:11 20:11 Urinalysis W/Microscopic+U.LAB.BRZ ordered. EDMS EDMS 20:11 20:11 ETHANOL+C.LAB.BRZ ordered. EDMS EDMS 20:24 20:24 Wrist Left 3 View+RAD.RAD.BRZ ordered. EDMS EDMS 23:10 22:54 sp4 kmf
--- NOTE | 2024-05-24 22:55 | ER ---
Nurse's Notes [facility] Name: Lopez Leach Age: 23 yrs Sex: Male : 2000 Arrival Date: 05/24/2024 Time: 20:07 Bed 3 Private MD: Diagnosis: Hypoglycemia, unspecified;Acute hypoglycemic episode, hypoglycemia associated with insulin. Presentation: 05/24 20:19 Chief complaint: EMS states: called out for chest pain on pt. on arrival pt was subdued bm8 in restraints. blood sugar was to low to read by machine. we gave 2 amp d50 and 2mg glucagon IM. BS on arrival of hospital was 166. Coronavirus screen: At this time, the client does not indicate any symptoms associated with coronavirus-19. Ebola Screen: Patient negative for fever greater than or equal to 101.5 degrees Fahrenheit, and additional compatible Ebola Virus Disease symptoms Patient denies exposure to infectious person. Patient denies travel to an Ebola-affected area in the 21 days before illness onset. No symptoms or risks identified at this time. Initial Sepsis Screen: Does the patient meet any 2 criteria? No. Patient's initial sepsis screen is negative. Does the patient have a suspected source of infection? No. Patient's initial sepsis screen is negative. Risk Assessment: Do you want to hurt yourself or someone else? Patient reports no desire to harm self or others. Onset of symptoms is unknown. 20:19 Method Of Arrival: EMS: [facility] bm8 20:19 Acuity: PATRICIA 3 bm8 Triage Assessment: 20:22 General: Appears distressed, uncomfortable, Behavior is calm, cooperative, appropriate bm8 for age, quiet. Pain: Complains of pain in chest, left wrist. EENT: No deficits noted. Neuro: Level of Consciousness is awake, alert, obeys commands, Oriented to person, place, time, situation, Appropriate for age. Cardiovascular: Reports chest pain, Heart tones S1 S2 present Capillary refill < 3 seconds Patient's skin is warm and dry. Respiratory: No deficits noted. Airway is patent Trachea midline Respiratory effort is even, unlabored, Respiratory pattern is regular, symmetrical, Breath sounds are clear bilaterally. GI: LOW BLOOD SUGAR. 20:24 GI: Patient currently denies nausea, vomiting. : No signs and/or symptoms were bm8 reported regarding the genitourinary system. Derm: No signs and/or symptoms reported regarding the dermatologic system. Musculoskeletal: Swelling present in left wrist Reports pain in left wrist Pain is 9 out of 10 on a pain scale. Historical: - Allergies: 20:22 No Known Allergies; bm8 - Home Meds: 20:22 insulin [Active]; bm8 - PMHx: 20:22 diabetes mellitus; bm8 - PSHx: 20:22 None; bm8 - Immunization history:: Adult Immunizations up to date. - Infectious Disease History:: Denies. - Social history:: Smoking status: Patient denies any tobacco usage or history of. Screenin:25 [facility] ED Fall Risk Assessment (Adult) History of falling in the last 3 months, bm8 including since admission No falls in past 3 months (0 pts) Confusion or Disorientation No (0 pts) Intoxicated or Sedated Yes (3 pts) Impaired Gait Yes (1 pt) Mobility Assist Device Used No (0 pt) Altered Elimination No (0 pt) Score/Fall Risk Level 3 or more points = High Risk Oriented to surroundings, Maintained a safe environment, Educated pt \T\ family on fall prevention, incl call for assistance when getting out of bed, Assessed \T\ reinforced patient's understanding of fall precautions. Abuse screen: Denies threats or abuse. Nutritional screening: No deficits noted. Tuberculosis screening: No symptoms or risk factors identified. Assessment: 20:25 Reassessment: see triage assessment. bm8 21:34 Reassessment: Patient appears in no apparent distress at this time. Patient and/or bm8 family updated on plan of care and expected duration. Pain level reassessed. Patient is alert, oriented x 3, equal unlabored respirations, skin warm/dry/pink. Patient states feeling better. Patient states symptoms have improved. General: Appears in no apparent distress. comfortable, Behavior is calm, cooperative, appropriate for age. Pain: Complains of pain in left wrist Pain currently is 3 out of 10 on a pain scale. Neuro: No deficits noted. Level of Consciousness is awake, alert, obeys commands, Oriented to person, place, time, situation. Cardiovascular: No deficits noted. Capillary refill < 3 seconds Patient's skin is warm and dry. Respiratory: No deficits noted. Airway is patent Respiratory effort is even, unlabored, Respiratory pattern is regular, symmetrical. 22:23 Reassessment: Patient appears in no apparent distress at this time. No changes from bm8 previously documented assessment. Patient and/or family updated on plan of care and expected duration. Pain level reassessed. Patient is alert, oriented x 3, equal unlabored respirations, skin warm/dry/pink. Patient states feeling better. Patient states symptoms have improved. 23:47 Reassessment: Patient appears in no apparent distress at this time. No changes from jw7 previously documented assessment. Patient and/or family updated on plan of care and expected duration. Pain level reassessed. Patient is alert, oriented x 3, equal unlabored respirations, skin warm/dry/pink. Vital Signs: 20:19 BP 141 / 122; Pulse 84; Resp 18; Temp 97.4; Pulse Ox 99% on R/A; Weight 92.99 kg; bm8 Height 5 ft. 11 in. ; Pain 8/10; 21:34 BP 139 / 94; Pulse 72; Resp 19; Temp 97.4; Pulse Ox 99% on R/A; Pain 3/10; bm8 22:23 BP 120 / 84; Pulse 70; Resp 19; Temp 97.4; Pulse Ox 98% on R/A; Pain 3/10; bm8 23:30 BP 111 / 72; Pulse 68; Resp 17 S; Pulse Ox 98% on R/A; jw7 20:19 Body Mass Index 28.59 (92.99 kg, 180.34 cm) bm8 20:19 Pain Scale: Adult bm8 21:34 Pain Scale: Adult bm8 22:23 Pain Scale: Adult bm8 Mendez Coma Score: 20:25 Eye Response: spontaneous(4). Motor Response: obeys commands(6). Verbal Response: bm8 oriented(5). Total: 15. 21:34 Eye Response: spontaneous(4). Motor Response: obeys commands(6). Verbal Response: bm8 oriented(5). Total: 15. 21:50 Eye Response: spontaneous(4). Motor Response: obeys commands(6). Verbal Response: sp4 oriented(5). Total: 15. 22:23 Eye Response: spontaneous(4). Motor Response: obeys commands(6). Verbal Response: bm8 oriented(5). Total: 15. ED Course: 20:08 Patient arrived in ED. ss 20:10 Potepalov, Antoni, MD is Attending Physician. sp4 20:19 Roque Galindo, VALE is Primary Nurse. bm8 20:22 Triage completed. bm8 20:24 Arm band placed on right wrist. bm8 20:25 Patient has correct armband on for positive identification. Placed in gown. Bed in low bm8 position. Call light in reach. Side rails up X2. Adult w/ patient. Security at bedside. Client placed on continuous cardiac and pulse oximetry monitoring. NIBP monitoring applied. telemetry monitor on. Pulse ox on. NIBP on. Door closed. Noise minimized. Warm blanket given. Verbal reassurance given. 20:25 No provider procedures requiring assistance completed. Initial lab(s) drawn, by ok, bmAroldo sent to lab. EKG done, by ED staff, reviewed by Antoni Sheehan MD. Inserted saline lock: 20 gauge in right antecubital area, using aseptic technique. Blood collected. Maintain EMS IV. Dressing intact. Site clean \T\ dry. Gauge \T\ site: 22 left hand. 20:37 XRAY Chest (1 view) In Process Unspecified. EDMS 20:37 Wrist Left (3 View) XRAY In Process Unspecified. EDMS 22:23 Julio wrap to left wrist. bm8 22:53 Nydia Angeles MD is Hospitalizing Provider. sp4 05/25 00:00 Provided Education on: need for admission. bm8 00:00 Patient admitted, IV remains in place. bm8 Administered Medications: 05/24 20:27 Drug: Ondansetron IVP 4 mg IVP once; over 2 minutes Route: IVP; Site: right wrist; bm8 21:29 Follow up: Response: No adverse reaction bm8 20:33 Drug: Ketorolac IVP 30 mg IVP once Route: IVP; Site: right antecubital; bm8 21:29 Follow up: Response: No adverse reaction bm8 05/25 00:00 Not Given (Physician Discretion): [id number] ml IV at 125 ml/hr continuous bm8 Medication: 05/24 20:25 VIS not applicable for this client. bm8 Point of Care Testing: Blood Glucose: 20:24 Blood Glucose: 206 mg/dL; bm8 21:45 Blood Glucose: 173 mg/dL; bm8 22:30 Blood Glucose: 106 mg/dL; jw7 Ranges: Outcome: 22:54 Decision to Hospitalize by Provider. sp4 05/25 00:00 Admitted to Med/surg accompanied by nurse, via stretcher, room 218, bm8 Condition: stable Instructed on the need for admit, 00:01 Patient left the ED. bm8 Signatures: Dispatcher [employer] EDMS Arlet Lilly RN RN Whit Hand RN RN jw7 Antoni Sheehan MD MD sp4 Roque Galindo RN RN bm8
[2024-05-24] MEDS ORDERED: MORPHINE 2 MG/ML SYR IV PRN (23:03)
[2024-05-24] MEDS ORDERED: ACETAMINOPHEN 500 MG TAB PO PRN (23:03)
[2024-05-24] MEDS ORDERED: ONDANSETRON 4 MG/2 ML VIAL IV PRN (23:03)
--- NOTE | 2024-05-24 23:03 | P.HP ---
Certification for Inpatient Patient admitted to: Observation With expected LOS: <2 Midnights Patient will require the following post-hospital care: None Practitioner: I am a practitioner with admitting privileges, knowledge of patient current condition, hospital course, and medical plan of care. Services: Services provided to patient in accordance with Admission requirements found in Title 42 Section 412.3 of the Code of Federal Regulations Patient History Date of Service: 05/24/24 Reason for admission: Hypoglycemic coma History of Present Illness: 23-year-old patient with past medical history of insulin-dependent DM/ type I on insulin regimen, resident at the [facility], recent hospitalization 3 weeks ago for hypoglycemia, resuscitated with dextrose and glucose was stable at the time of discharge. No adjustment to his insulin was made at the time. He continues on his regular Novolin and Novolin R regimen. He states he had baseline Novolin Nhi injection about 6 hours prior to presentation after which it was noted by the present staff to be in a coma. His glucose was noted low at 20. He was given D50 by EMS. On arrival in the emergency room his glucose has improved to the 166 with repeat at 241 but now 2 hours later trending down to 120s. Patient is being admitted for observation. Other laboratory workup as well as vital signs were stable. Allergies peanut Allergy (Verified 05/08/24 09:10) Shortness of breath Home Medications: Cefdinir [Cefdinir*] 300 mg PO BID 7 Days #14 cap 05/08/24 Dextrose [Glucose Gel] 38 gm PO ACHS PRN #1 tube 05/08/24 Insulin NPH Human Isophane [Novolin N] 15 unit SQ BEDTIME 05/08/24 Insulin NPH Human Isophane [Novolin N] 30 unit SQ DAILY 05/08/24 Insulin Regular, Human [Novolin R] 5 unit SQ BIDWM 05/08/24 - Past Medical/Surgical History Diabetic: Yes -: Insulin-dependent diabetes mellitus Past Surgical History: Reviewed- Non-Contributory Psychosocial/ Personal History: Presents as a prisoner for hypoglycemia - Social History Smoking Status: Never smoker Smoking therapy provided: No Patient receptive to therapy: No Alcohol use: No CD- Drugs: Yes Caffeine use: Yes Place of Residence: Home Review of Systems General: Weakness, Malaise Physical Examination - Physical Exam General: Alert, In no apparent distress, Oriented x3 HEENT: Atraumatic, Normocephalic, PERRLA Neck: Supple, 2+ carotid pulse no bruit, JVD not distended Respiratory: Clear to auscultation bilaterally, Normal air movement Cardiovascular: Normal pulses, Regular rate/rhythm, Normal S1 S2 Gastrointestinal: Normal bowel sounds, Soft and benign, Non-distended Musculoskeletal: No clubbing, No swelling Integumentary: No rashes, No breakdown, No significant lesion Neurological: Normal speech, Normal strength at 5/5 x4 extr, Sensation intact, Cranial nerves 3-12 intact - Studies Laboratory Data (last 24 hrs) 05/24/24 05/24/24 05/24/24 20:15 20:15 20:15 WBC 11.60 H Hgb 15.5 Hct 47.9 Plt Count 296 PT 11.0 INR 1.00 Sodium 137 Potassium 3.2 L BUN 18 Creatinine 1.31 H Glucose 241 H Magnesium 2.2 Total Bilirubin 0.3 AST 20 ALT 24 Alkaline Phosphatase 79 Assessment and Plan - Problems (Diagnosis) (1) Diabetes mellitus type 1 Current Visit: No Status: Acute (2) Hypoglycemia Current Visit: No Status: Acute - Plan Impression Hypoglycemia, Type I DM Plan Hyperglycemia likely due to overdose of insulin Continue D5 Await for insulin dosage given 8 hours earlier to wean off Follow glucose level every hour for now Need insulin doses reduced Will reduce Novolin N and at discharge to 10 unit bid - currently on 30 units in am and 15 unit at qhs Can continue Novolin R 5 units twice daily with meals Can discharge home in a.m. if stable glucose level - Advance Directives Does patient have a Living Will: No Does patient have a Durable POA for Healthcare: No
[2024-05-24] MEDS ORDERED: HYDRALAZINE HCL 20 MG/ML VIAL IV PRN (23:06)
[2024-05-25] MEDS: D5W 1,000 ML IV SCH (00:26)
[2024-05-25 01:19] VITALS: BMI 28.5
[2024-05-25 05:22] LABS: Absolute Eosinophils 0.4 K/uL (0-0.5); Absolute Lymphocytes (CBC) 1.8 K/uL (0.7-4.9); Absolute Monocytes 1.3 K/uL (0.1-1.3); Absolute Neutrophil 7.7 K/uL (1.8-8.0); Basophils % 0.4 % (0-1.3); Eosinophils % 3.7 % (0-4.4); Hematocrit 47.7 % (39.6-49.0); Hemoglobin 15.7 g/dL (13.6-17.9); Lymphocytes % 16.2 % (15.3-44.8); MCH 26.2 pg (27.0-35.0); MCV 79.2 fL (80-100); MPV 8.1 fL (7.6-11.3); Monocytes % 11.4 % (3.3-12.3); Neutrophils % 68.3 % (41.7-73.7); Platelets 308 thou/uL (152-406); RBC Red Blood Cell Count 6.02 M/uL (4.33-5.43); Red Cell Distribution Width 15.1 % (12.1-15.2)
[2024-05-25 05:45] LABS: Albumin 3.5 g/dL (3.4-5.0); Albumin/Globulin Ratio 0.9 (1.1-1.8); Anion Gap 6.7 mEq/L (5.0-15.0); Bilirubin Total 0.6 mg/dL (0.2-1.0); Globulin 3.8 g/dL (2.3-3.5); Potassium 3.7 mEq/L (3.5-5.1); Protein, Total 7.3 g/dL (6.4-8.2)
[2024-05-25 05:45] LABS: Specific Gravity 1.024 (1.005-1.030); Sqamous Epithelial <5 /HPF (None Seen); Urine Bacteria None Seen /HPF (<20); Urine Bilirubin NEGATIVE (Negative); Urine Blood Negative (Negative); Urine Clarity Clear (Clear); Urine Color Yellow (Yellow); Urine Culture Reflex Order NOT NEEDED; Urine Glucose 4+ (Over) (Negative); Urine Ketones 1+ (Negative); Urine Micro Reflex YN NO BILL MICROSCOPIC; Urine Mucus Slight /HPF (None Seen); Urine Nitrite NEGATIVE (Negative); Urine Protein 1+ (Negative); Urine RBC <5 /HPF (None Seen); Urine Urobilinogen Normal (Normal); Urine WBC <5 /HPF (<5); Urine pH 5.5 (5.0-7.0)
[2024-05-25 05:56] LABS: Barbiturates NEGATIVE (NEGATIVE); Benzodiazepines NEGATIVE (NEGATIVE); Cocaine NEGATIVE (NEGATIVE); METHAMPHETAM POSITIVE (NEGATIVE); Methadone NEGATIVE (NEGATIVE); Opiates NEGATIVE (NEGATIVE); Phencyclidine NEGATIVE (NEGATIVE); THC Cannibis NEGATIVE (NEGATIVE)
--- NOTE | 2024-05-25 08:44 | P.DS ---
Admission Date: 05/24/24 Discharge Date: 05/25/24 Reason for Admission: Hypoglycemic coma Brief History of Present Illness: 23-year-old patient with past medical history of insulin-dependent DM/ type I on insulin regimen, resident at the [facility], recent hospitalization 3 weeks ago for hypoglycemia, resuscitated with dextrose and glucose was stable at the time of discharge. No adjustment to his insulin was made at the time. He continues on his regular Novolin and Novolin R regimen. He states he had baseline Novolin Nhi injection about 6 hours prior to presentation after which it was noted by the present staff to be in a coma. His glucose was noted low at 20. He was given D50 by EMS. On arrival in the emergency room his glucose has improved to the 166 with repeat at 241 but now 2 hours later trending down to 120s. Patient is being admitted for observation. Other laboratory workup as well as vital signs were stable. Hospital Course: Hypoglycemia, Type I DM Plan Hyperglycemia likely due to overdose of insulin Await for insulin dosage given 8 hours earlier to wean off Follow glucose level every hour for now Need insulin doses reduced Will reduce Novolin N and at discharge to 10 unit bid - currently on 30 units in am and 15 unit at qhs Can continue Novolin R 5 units twice daily with meals Can discharge home in a.m. if stable glucose level Okay to DC IV and DC with officers Follow-up with primary care provider in 1 to 2 weeks Please call the inpatient unit for any questions or concerns regarding hospital stay Return to the ER for worsening symptoms <Sunni Solorzano - Last Filed: 05/25/24 08:58> Admission Date: 05/24/24 Discharge Date: 05/25/24 Hospital Course: Pt seen and examined. I agree with the note by the [employer]. Will reduce his novolin to 10u BID. Follow up with PCP. Ok to discharge pt. <Aparna Morrow - Last Filed: 05/25/24 10:13> Disposition: DISCHARGE TO [facility]/CORRECTION Discharge Condition: GOOD Vital Signs/Physical Exam: Temp Pulse Resp BP Pulse Ox 97.6 F 66 17 121/86 100 05/25/24 03:24 05/25/24 03:24 05/25/24 03:24 05/25/24 03:24 05/25/24 03:24 General: Alert, In no apparent distress, Oriented x3 HEENT: Atraumatic, Normocephalic Neck: Supple, 2+ carotid pulse no bruit Respiratory: Clear to auscultation bilaterally, Normal air movement Cardiovascular: Normal pulses, Regular rate/rhythm Capillary refill: <2 Seconds Gastrointestinal: Normal bowel sounds, Soft and benign Musculoskeletal: No clubbing, No swelling Integumentary: No rashes Neurological: Normal speech, Normal tone, Normal affect Lymphatics: No axilla or inguinal lymphadenopathy External genitalia: Deferred Rectal: Deferred Laboratory Data at Discharge: WBC 11.30 thou/uL (4.3-10.9) H 05/25/24 05:06 Hgb 15.7 g/dL (13.6-17.9) 05/25/24 05:06 Hct 47.7 % (39.6-49.0) 05/25/24 05:06 Plt Count 308 thou/uL (152-406) 05/25/24 05:06 PT 11.0 SECONDS (9.4-12.5) 05/24/24 20:15 INR 1.00 05/24/24 20:15 Sodium 135 mEq/L (136-145) L 05/25/24 05:06 Potassium 3.7 mEq/L (3.5-5.1) D 05/25/24 05:06 BUN 21 mg/dL (7-18) H 05/25/24 05:06 Creatinine 1.16 mg/dL (0.70-1.30) 05/25/24 05:06 Glucose 208 mg/dL (74-106) H 05/25/24 05:06 Magnesium 2.2 mg/dL (1.6-2.4) 05/24/24 20:15 Total Bilirubin 0.6 mg/dL (0.2-1.0) 05/25/24 05:06 AST 31 U/L (15-37) 05/25/24 05:06 ALT 25 U/L (16-61) 05/25/24 05:06 Alkaline Phosphatase 83 U/L (45-117) 05/25/24 05:06 <Solorzano,Sunni Darren - Last Filed: 05/25/24 08:58> Vital Signs/Physical Exam: Temp Pulse Resp BP Pulse Ox 97.6 F 66 17 121/86 100 05/25/24 03:24 05/25/24 03:24 05/25/24 03:24 05/25/24 03:24 05/25/24 03:24 Laboratory Data at Discharge: WBC 11.30 thou/uL (4.3-10.9) H 05/25/24 05:06 Hgb 15.7 g/dL (13.6-17.9) 05/25/24 05:06 Hct 47.7 % (39.6-49.0) 05/25/24 05:06 Plt Count 308 thou/uL (152-406) 05/25/24 05:06 PT 11.0 SECONDS (9.4-12.5) 05/24/24 20:15 INR 1.00 05/24/24 20:15 Sodium 135 mEq/L (136-145) L 05/25/24 05:06 Potassium 3.7 mEq/L (3.5-5.1) D 05/25/24 05:06 BUN 21 mg/dL (7-18) H 05/25/24 05:06 Creatinine 1.16 mg/dL (0.70-1.30) 05/25/24 05:06 Glucose 208 mg/dL (74-106) H 05/25/24 05:06 Magnesium 2.2 mg/dL (1.6-2.4) 05/24/24 20:15 Total Bilirubin 0.6 mg/dL (0.2-1.0) 05/25/24 05:06 AST 31 U/L (15-37) 05/25/24 05:06 ALT 25 U/L (16-61) 05/25/24 05:06 Alkaline Phosphatase 83 U/L (45-117) 05/25/24 05:06 <Aparna Morrow - Last Filed: 05/25/24 10:13> Diet: ADA Activity: Ad mervat <Solorzano,Sunni Darren - Last Filed: 05/25/24 08:58> <Aaprna Morrow - Last Filed: 05/25/24 10:13> Home Medications: Cefdinir [Cefdinir*] 300 mg PO BID 7 Days #14 cap 05/08/24 Insulin Regular, Human [Novolin R] 5 unit SQ BIDWM 05/08/24 NPH, Human Insulin Isophane [Humulin N] 10 unit SQ BID #1 ml 05/25/24 New Medications: NPH, Human Insulin Isophane [Humulin N] 10 unit SQ BID #1 ml Physician Discharge Instructions: Hypoglycemia, Type I DM Plan Hyperglycemia likely due to overdose of insulin Await for insulin dosage given 8 hours earlier to wean off Follow glucose level every hour for now Need insulin doses reduced Will reduce Novolin N and at discharge to 10 unit bid - currently on 30 units in am and 15 unit at qhs Can continue Novolin R 5 units twice daily with meals Can discharge home in a.m. if stable glucose level Okay to DC IV and DC with officers Follow-up with primary care provider in 1 to 2 weeks Please call the inpatient unit for any questions or concerns regarding hospital stay Return to the ER for worsening symptoms Followup: NONE,NONE [Primary Care Provider] -
[2024-05-25 09:13] VITALS: O2SAT 99
[2024-05-25 13:54] VITALS: BP 143/83; TEMP 98.3
--- NOTE | 2024-05-26 16:09 | EKG ---
Test Date: 2024-05-24 Test Time: 20:13:30 Picker: RICHELLE MEASUREMENT RESULTS: Intervals: Rate: 81 WY: 148 QRSD: 94 QT: 374 QTc: 434 Albia: P: 78 WY: 148 QRS: 45 T: 48 INTERPRETIVE STATEMENTS: Sinus rhythm with marked sinus arrhythmia Otherwise normal ECG Compared to ECG 05/07/2024 11:41:11 ST (T wave) deviation no longer present Electronically Signed On 05-26-24 16:07:05 CDT by Joseluis Romo
== END 2024-05-25 14:14 ==
LOC: ER 20:07 → ERHOLD 23:03 → 2ND 23:56
PROVIDERS: ADMIT Internal Medicine; ATTEND Hospitalist
DX: E10.649 Type 1 diabetes mellitus with hypoglycemia without coma (principal); Z79.4 Long term (current) use of insulin; Y92.149 Unspecified place in prison as the place of occurrence of the external cause
CPT/HCPCS: 93005; 85025 ×2; 81001; 80048; 36415; 83735; 85610; 82947 ×9; 80076; 84484; 80053; 83880; 80307; 71045; 73110; 99285; 82077; J2405; J7042

== ENCOUNTER 2024-09-21 13:31 | Emergency (ER) | payer OTHER ==
[2024-09-21] MEDS ORDERED: HYDROCORTISONE SUC 100 MG INJ ONE (13:51)
[2024-09-21 14:11] LABS: Absolute Basophils 0.1 K/uL (0-0.5); Absolute Eosinophils 0.1 K/uL (0-0.5); Absolute Lymphocytes (CBC) 1.1 K/uL (0.7-4.9); Absolute Monocytes 0.7 K/uL (0.1-1.3); Absolute Neutrophil 13.9 K/uL (1.8-8.0); Basophils % 0.5 % (0-1.3); Eosinophils % 0.9 % (0-4.4); Hematocrit 48.5 % (39.6-49.0); Hemoglobin 15.8 g/dL (13.6-17.9); MCH 25.6 pg (27.0-35.0); MCHC 32.6 g/dL (32.0-36.0); MCV 78.6 fL (80-100); MPV 8.2 fL (7.6-11.3); Monocytes % 4.7 % (3.3-12.3); Neutrophils % 86.9 % (41.7-73.7); Platelets 287 thou/uL (152-406); RBC Red Blood Cell Count 6.17 M/uL (4.33-5.43); Red Cell Distribution Width 16.1 % (12.1-15.2)
[2024-09-21 14:24] LABS: Anion Gap 6.5 mEq/L (5.0-15.0); Potassium 3.5 mEq/L (3.5-5.1)
[2024-09-21 15:08] LABS: Blood Morphology Comment NOT SEEN (NOT SEEN); Platelet Estimate ADEQ; White Blood Cell Scan OK (OK)
--- NOTE | 2024-09-21 15:36 | ER ---
Nurse's Notes [facility] Name: Lopez Leach Age: 24 yrs Sex: Male : 2000 Arrival Date: 09/21/2024 Time: 13:31 Bed 17 Private MD: Diagnosis: Hypoglycemia, unspecified Presentation: 09/21 13:35 Chief complaint: EMS states: HYPOGLYCEMIA, FREQUENT H/O SAME. Coronavirus screen: At bp this time, the client does not indicate any symptoms associated with coronavirus-19. Ebola Screen: No symptoms or risks identified at this time. Initial Sepsis Screen: Does the patient meet any 2 criteria? No. Patient's initial sepsis screen is negative. Does the patient have a suspected source of infection? No. Patient's initial sepsis screen is negative. Risk Assessment: Do you want to hurt yourself or someone else? Patient reports no desire to harm self or others. Onset of symptoms is unknown. Care prior to arrival: Glucose check: 159 INITIAL BGL 77 GLUCAGON IM, PO GLUCOSE. 13:35 Method Of Arrival: EMS: [facility] bp 13:35 Acuity: PATRICIA 3 bp Triage Assessment: 13:45 General: Appears in no apparent distress. Behavior is calm, cooperative, appropriate rs5 for age. Pain: Denies pain. EENT: No deficits noted. Neuro: No deficits noted. Cardiovascular: No deficits noted. Respiratory: No deficits noted. GI: No signs and/or symptoms were reported involving the gastrointestinal system. : No signs and/or symptoms were reported regarding the genitourinary system. Derm: No deficits noted. Musculoskeletal: No deficits noted. Historical: - PMHx: 13:37 diabetes mellitus; bp - Immunization history:: Adult Immunizations up to date. - Infectious Disease History:: Denies. - Social history:: Smoking status: Patient denies any tobacco usage or history of. - Family history:: not pertinent. - Hospitalizations: : No recent hospitalization is reported. Screenin:14 [facility] ED Fall Risk Assessment (Adult) History of falling in the last 3 months, rs5 including since admission No falls in past 3 months (0 pts) Confusion or Disorientation No (0 pts) Intoxicated or Sedated No (0 pts) Impaired Gait No (0 pts) Mobility Assist Device Used No (0 pt) Altered Elimination No (0 pt) Score/Fall Risk Level 0 - 2 = Low Risk. Abuse screen: Denies threats or abuse. Denies injuries from another. Nutritional screening: No deficits noted. Tuberculosis screening: No symptoms or risk factors identified. Assessment: 13:37 General: Appears in no apparent distress. comfortable, Behavior is calm, cooperative. rs5 Pain: Denies pain. Neuro: Level of Consciousness is awake, alert, obeys commands, Oriented to person, place, time, situation. Cardiovascular: Patient's skin is warm and dry. Respiratory: Airway is patent Respiratory effort is even, unlabored, Respiratory pattern is regular, symmetrical. GI: Abdomen is round non-distended, Abd is soft and non tender X 4 quads. : No signs and/or symptoms were reported regarding the genitourinary system. EENT: No signs and/or symptoms were reported regarding the EENT system. Derm: Skin is intact, Skin is pink, warm \T\ dry. Musculoskeletal: Range of motion: intact in all extremities. 13:45 General: Appears in no apparent distress. comfortable, Behavior is calm, cooperative, rs5 appropriate for age. Pain: Denies pain. 14:14 Reassessment: Patient appears in no apparent distress at this time. Patient is alert, rs5 oriented x 3, equal unlabored respirations, skin warm/dry/pink. 15:15 Reassessment: Patient and/or family updated on plan of care and expected duration. Pain rs5 level reassessed. Patient is alert, oriented x 3, equal unlabored respirations, skin warm/dry/pink. 15:53 Reassessment: D/C ON HOLD FOR TRANSPORT. bp Vital Signs: 13:35 BP 151 / 98; Pulse 74; Resp 16; Temp 98; Pulse Ox 99% ; bp 15:00 BP 128 / 75; Pulse 77; Resp 16; Temp 98; Pulse Ox 99% ; bp 15:35 BP 122 / 77; Pulse 70; Resp 17; Pulse Ox 99% on R/A; rs5 ED Course: 13:35 Patient arrived in ED. bp 13:37 Triage completed. bp 13:37 Austyn Pena MD is Attending Physician. rn 13:45 Arm band placed on. rs5 14:12 Prabhakar Dumont, VALE is Primary Nurse. rs5 14:14 Patient has correct armband on for positive identification. rs5 14:14 Initial lab(s) drawn, by ED staff, sent to lab. Inserted saline lock: 22 gauge in left rs5 antecubital area, using aseptic technique. Blood collected. Flushed with 10 mL NS. 15:54 No provider procedures requiring assistance completed. IV discontinued, intact, bp bleeding controlled, No redness/swelling at site. Pressure dressing applied. Administered Medications: 14:30 Drug: Solu-CORTEF IVP 50 mg IVP once Route: IVP; Site: left antecubital; bp 15:50 Follow up: Response: No adverse reaction bp Medication: 14:14 VIS not applicable for this client. rs5 Outcome: 15:36 Discharge ordered by MD. rn 15:54 Discharged to Law Enforcement bp 15:54 Condition: stable 15:54 Discharge instructions given to police, Instructed on discharge instructions, follow up and referral plans. Demonstrated understanding of instructions, follow-up care, 16:51 Patient left the ED. bp Signatures: Austyn Pena MD MD rn Peltier, Brian, RN RN bp Prabhakar Dumont, RN RN rs5 Corrections: (The following items were deleted from the chart) 18:32 16:51 Reassessment: DC WITH [facility] bp rs5 18:32 16:20 Reassessment: Patient and/or family updated on plan of care and expected rs5 duration. Pain level reassessed. Patient is alert, oriented x 3, equal unlabored respirations, skin warm/dry/pink. rs5
--- NOTE | 2024-09-21 15:37 | EDPHYS ---
Physician Documentation [facility] Name: Lopez Leach Age: 24 yrs Sex: Male : 2000 Arrival Date: 09/21/2024 Time: 13:31 Bed 17 Private MD: ED Physician Austyn Pena HPI: 09/21 14:09 This 24 yrs old Black Male presents to ER via EMS with complaints of Low Blood Sugar. rn 14:09 The patient or guardian reports hypoglycemia, that was potentially precipitated by rn eating. Onset: The symptoms/episode began/occurred today. Current symptoms: In the emergency department the patient's symptoms have improved. The patient has experienced similar episodes in the past, multiple times. The patient has not recently seen a physician. Patient reports low blood sugar, is diabetic, on insulin but recently moved to a different location in the detention, is fed different food and did not think there were any carbohydrates in his food today. Low blood sugar was noted after patient started to feel shaky. Has had several episodes of hypoglycemia in the past. Now back to normal after oral glucose given by EMS and glucagon given while in detention. Denies any illness or fever. Completely back to normal now.. Historical: - PMHx: 13:37 diabetes mellitus; bp - Immunization history:: Adult Immunizations up to date. - Infectious Disease History:: Denies. - Social history:: Smoking status: Patient denies any tobacco usage or history of. - Family history:: not pertinent. - Hospitalizations: : No recent hospitalization is reported. ROS: 14:09 Constitutional: Negative for fever, chills, and weight loss, Cardiovascular: Negative rn for chest pain, palpitations, and edema, Respiratory: Negative for shortness of breath, cough, wheezing, and pleuritic chest pain, Abdomen/GI: Negative for abdominal pain, nausea, vomiting, diarrhea, and constipation, Back: Negative for injury and pain, MS/Extremity: Negative for injury and deformity, Skin: Negative for injury, rash, and discoloration, Neuro: Negative for headache, weakness, numbness, tingling, and seizure, Exam: 14:09 Constitutional: This is a well developed, well nourished patient who is awake, alert, rn and in no acute distress. Head/Face: Normocephalic, atraumatic. Eyes: Pupils equal round and reactive to light, extra-ocular motions intact. Cardiovascular: Regular rate and rhythm. No pulse deficits. Respiratory: No increased work of breathing, no retractions or nasal flaring. Abdomen/GI: Soft, non-tender Neuro: Awake and alert, GCS 15 Vital Signs: 13:35 BP 151 / 98; Pulse 74; Resp 16; Temp 98; Pulse Ox 99% ; bp 15:00 BP 128 / 75; Pulse 77; Resp 16; Temp 98; Pulse Ox 99% ; bp 15:35 BP 122 / 77; Pulse 70; Resp 17; Pulse Ox 99% on R/A; rs5 MDM: 13:37 Medical Screening Exam initiated rn 15:34 Differential diagnosis: hypoglycemic episode. Data reviewed: vital signs, nurses notes, returns clerk test result(s), and as a result, I will discharge patient. Counseling: I had a detailed discussion with the patient and/or guardian regarding the historical points, exam findings, and any diagnostic results supporting the discharge/admit diagnosis, lab results, the need for outpatient follow up, to return to the emergency department if symptoms worsen or persist or if there are any questions or concerns that arise at home. Response to treatment: the patient's symptoms have resolved after treatment, the patient's condition has returned to base line, the patient is now symptom free, and as a result, I will discharge patient. Special discussion: I discussed with the patient/guardian in detail that at this point there is no indication for admission to the hospital. It is understood, however, that if the symptoms persist or worsen the patient needs to return immediately for re-evaluation. ED course: Glucose stabilized, now in the 200s. Tolerating p.o. Likely secondary to poor carbohydrate load and food today. Will discharge back to detention.. 09/21 13:48 Order name: CBC with Diff; Complete Time: 15:37 rn 09/21 13:48 Order name: Basic Metabolic Panel; Complete Time: 14:31 rn 09/21 14:12 Order name: Glucose, Ancillary Testing; Complete Time: 14: EDMS 09/21 15:09 Order name: CBC Smear Scan; Complete Time: 15:37 EDMS 09/21 15:35 Order name: Glucose, Ancillary Testing; Complete Time: 15:37 EDMS 09/21 13:48 Order name: IV Start; Complete Time: 14:16 rn 09/21 13:48 Order name: Glucose Level; Complete Time: 14:06 rn 09/21 13:48 Order name: Cardiac monitoring; Complete Time: 13:49 rn Administered Medications: 14:30 Drug: Solu-CORTEF IVP 50 mg IVP once Route: IVP; Site: left antecubital; bp 15:50 Follow up: Response: No adverse reaction bp Disposition Summary: 09/21/24 15:36 Discharge Ordered Notes: Location: Home rn Problem: new rn Symptoms: are resolved rn Condition: Stable rn Diagnosis - Hypoglycemia, unspecified rn Followup: rn - With: Private Physician - When: As needed - Reason: Recheck today's complaints, Re-evaluation by your physician Discharge Instructions: - Discharge Summary Sheet rn - Hypoglycemia rn - Blood Glucose Monitoring, Adult rn Forms: - Medication Reconciliation Form rn - Antibiotic rn examiner - Prescription Opioid Use rn - Patient Portal Instructions rn - Leadership Thank You Letter rn Signatures: Dispatcher [employer] Austyn Tolliver MD MD rn Peltier, Brian, RN RN bp
[2024-09-21 17:22] VITALS: TEMP 98; O2SAT 99
[2024-09-21 17:23] VITALS: BP 128/75
== END 2024-09-21 16:51 | disposition home or self-care (01) ==
LOC: ER 13:31
DX: E11.649 Type 2 diabetes mellitus with hypoglycemia without coma (principal); Z79.4 Long term (current) use of insulin
CPT/HCPCS: 85025; 80048; 36415; 82947 ×2; J1720; 96374; 99284